=== PATIENT | female | born 1985 | race Caucasian/White ===

== ENCOUNTER 2016-09-28 16:13 | Emergency (ER) | payer MEDICAID ==
[~2016-09-28] VITALS: Ht 165.1 cm; Wt 93.0 kg
[2016-09-28 19:49] LABS: BASOPHIL % 0.6 % (0-2); PLATELET COUNT 344 x10^3mcL (130-400)
[2016-09-28 19:51] LABS: RED CELL DISTRIBUTION WIDTH 16.6 % (11.5-14.5)
[2016-09-28 19:57] LABS: CALCIUM 9.2 mg/dL (8.5-10.1); CARBON DIOXIDE 21.8 mmol/L (21-32); CHLORIDE SERUM 102 mmol/L (98-107); CREATININE SERUM 0.7 mg/dL (0.6-1.0); GFR1 > 60 mL/min; GLUCOSE SERUM 94 mg/dL (74-106); POTASSIUM SERUM 3.8 mmol/L (3.5-5.1); SODIUM SERUM 138 mmol/L (136-145)
[2016-09-28 19:59] LABS: ALKALINE PHOSPHATASE 68 U/L (46-116); ALT/SGPT 14 U/L (14-59); AST/SGOT 12 U/L (15-37); BILIRUBIN TOTAL 0.3 mg/dL (0.20-1.00); LIPASE 118 IU/L (73-393); TOTAL PROTEIN, SERUM 7.4 g/dL (6.4-8.2)
[2016-09-28 20:00] LABS: ALBUMIN 2.6 g/dL (3.4-5.0)
[2016-09-28 20:31] LABS: UA SPECIFIC GRAVITY >=1.030 (1.005-1.035); microscopic required? YES; urine erythrocyte NEGATIVE (NEGATIVE)
[2016-09-28 21:18] VITALS: BP 115/60
== END 2016-09-28 21:18 | disposition home or self-care (01) ==
LOC: ED 16:13
PROVIDERS: Emergency Medicine
DX: O26.892 Other specified pregnancy related conditions, second trimester (principal); E86.0 Dehydration; Z3A.17 17 weeks gestation of pregnancy
CPT/HCPCS: J2405; Q0092

== ENCOUNTER 2018-05-11 08:38 | Emergency (ER) | payer MEDICAID ==
[~2018-05-11] VITALS: Ht 162.6 cm; Wt 80.7 kg
[2018-05-11 08:42] VITALS: Ht 162.6 cm; Wt 80.7 kg
[2018-05-11 10:30] VITALS: BP 97/58
== END 2018-05-11 10:30 | disposition home or self-care (01) ==
LOC: ED 08:38
DX: J45.901 Unspecified asthma with (acute) exacerbation (principal); N39.0 Urinary tract infection, site not specified
CPT/HCPCS: J7512; J7613; J7644; Q0092

== ENCOUNTER 2018-11-05 15:27 | Emergency (ER) | payer MEDICAID ==
[~2018-11-05] VITALS: Ht 160 cm; Wt 73.9 kg
[2018-11-05 15:29] VITALS: Ht 160 cm; Wt 73.9 kg
[2018-11-05 17:43] LABS: microscopic required? YES
[2018-11-05 17:44] LABS: UA SPECIFIC GRAVITY 1.015 (1.005-1.035)
[2018-11-05 17:45] LABS: urine erythrocyte 2+ (NEGATIVE)
[2018-11-05 18:09] VITALS: BP 112/71
== END 2018-11-05 18:09 | disposition home or self-care (01) ==
LOC: ED 15:27
PROVIDERS: Emergency Medicine
DX: N39.0 Urinary tract infection, site not specified (principal); J45.909 Unspecified asthma, uncomplicated; Z98.890 Other specified postprocedural states
CPT/HCPCS: J0696